=== PATIENT | female | born 1990 | race Caucasian/White ===

== ENCOUNTER → 2021-12-02 13:45 | Outpatient (CLI) | payer BC, SELFPAY ==
--- NOTE | ~2021-12-02 | US_ITS ---
EXAMINATION: US OB /maternal detail DATE: 12/02/2021 14:31 INDICATION: anatomic survey. TECHNIQUE: Real-time ultrasound of the pelvis was performed. COMPARISON: None. FINDINGS: There is a single living fetus in vertex presentation. The placenta is posterior, 9.2 cm from the ce rvix. heart rate is 158 beats per minute (bpm). The amniotic fluid volume is subjectively jg l. There is a 1.8 cm subserosal fibroid. The following biometric data were obtained: Biparietal diameter (BPD): 4.9 cm; head circumference (HC): 18.4 cm; abdominal circumference (AC): 15 .4 cm; femur length (FL): 3.3 cm. These measurements are concordant. Estimated weight is 358 g +/- 54 g, which correlates with the 41st percentile when 04/17/22 is us ed as estimated date of delivery. As single measurements, these parameters are each equal to the following estimated gestational ages w ith ranges of +/- 2 standard deviations: BPD: 21 weeks 0 days (19 weeks 2 days - 22 weeks 5 days). HC: 20 weeks 5 days (19 weeks 2 days - 22 weeks 2 days). AC: 20 weeks 4 days (18 weeks 4 days - 22 weeks 5 days). FL: 20 weeks 2 days (18 weeks 3 days - 22 weeks 1 days). estimated gestational age based solely on measurements from this exam is 20 weeks 5 days +/- 1 weeks 3 days. The cerebral ventricles, cerebellum, cisterna magna, nuchal fold, lip, and visualized portions of the spine are normal. The heart is normal. The diaphragm, stomach, kidneys, and bladder are normal. Ther e are two umbilical arteries to yield a 3-vessel cord. The cord insertion is normal. IMPRESSION: 1. Single living fetus in vertex presentation. 2. Estimated weight is 358 g +/- 54 g, which correlates with the 41st percentile when 04/17/22 i s used as estimated date of delivery. 3. Normal anatomic survey. Reviewed, dictated and finalized at location A. QUALITY TECHNICIAN IMPRESSION: 1. Single living fetus in vertex presentation. 2. Estimated weight is 358 g +/- 54 g, which correlates with the 41st pe rcentile when 04/17/22 is used as estimated date of delivery. 3. Normal anatomic survey.
== END ==
PROVIDERS: Visit Provider Obstetrics & Gynecology Gynecologic Oncology
DX: Z36.9 Encounter for antenatal screening, unspecified (principal); Z3A.20 20 weeks gestation of pregnancy
CPT/HCPCS: 76805

== ENCOUNTER 2024-05-06 13:19 | Outpatient (CLI) | payer OTHER, SELFPAY ==
--- NOTE | ~2024-05-06 | US_ITS ---
EXAMINATION: US OB /maternal detail DATE: 05/06/2024 13:55 INDICATION: Encounter for screening. TECHNIQUE: Real-time ultrasound of the pelvis was performed. COMPARISON: None. FINDINGS: There is a single living fetus in vertex presentation. The placenta is anterior, 1.9 cm from the cer vix. The cervical length is 3.8 cm on transabdominal images, which is normal. heart rate is 138 beats per minute (bpm). The amniotic fluid volume is subjectively normal. The following biometric data were obtained: Biparietal diameter (BPD): 4.6 cm; head circumference (HC): 17.1 cm; abdominal circumference (AC): 14 .7 cm; femur length (FL): 3.2 cm. These measurements are concordant. Estimated weight is 321 g +/- 48 g, which correlates with the 26th percentile when 09/21/24 is u sed as estimated date of delivery. As single measurements, these parameters are each equal to the following estimated gestational ages: BPD: 19 weeks 6 days. HC: 19 weeks 5 days. AC: 20 weeks 0 days. FL: 19 weeks 6 days. estimated gestational age based solely on measurements from this exam is 19 weeks 6 days +/- 1 weeks 3 days. The cerebral ventricles, cerebellum, cisterna magna, nuchal fold, lip, and visualized portions of the spine are normal. The heart is normal. The diaphragm, stomach, kidneys, and bladder are normal. Ther e are two umbilical arteries to yield a 3-vessel cord. The cord insertion is normal. IMPRESSION: 1. Single living fetus in vertex presentation. 2. Estimated weight is 321 g +/- 48 g, which correlates with the 26th percentile when 09/21/24 is used as estimated date of delivery. 3. Low-lying placenta. 4. Normal anatomic survey. Reviewed, dictated and finalized at location E. IMPRESSION: 1. Single living fetus in vertex presentation. 2. Estimated weight is 321 g +/- 48 g, which correlates with the 26th pe rcentile when 09/21/24 is used as estimated date of delivery. 3. Low-lying placenta. 4. Normal anatomic survey.
== END 2024-05-06 13:20 ==
LOC: MICIMG 13:21
PROVIDERS: PCP Obstetrics & Gynecology; Visit Provider Obstetrics & Gynecology
DX: Z36.9 Encounter for antenatal screening, unspecified (principal); Z3A.19 19 weeks gestation of pregnancy
CPT/HCPCS: 76805

== ENCOUNTER 2024-06-03 10:07 | Outpatient (CLI) | payer OTHER, SELFPAY ==
--- NOTE | ~2024-06-03 | US_ITS ---
US OB limited 06/03/2024 10:23 Indication: Low back pain Procedure: High-resolution Limited obstetrical ultrasound Comparison: Her son dated 05/06/2024 Findings: There is a single living intrauterine in vertex presentation. heart rate is 141 BPM. Placenta is anterior measuring 7.5 cm to the cervix. Cervical length is 3.9 cm. Amniotic fl uid is subjectively normal. Impression: 1: Single living intrauterine in vertex presentation. 2: Anterior placenta without previa. Reviewed, dictated and finalized at location B. Impression: 1: Single living intrauterine in vertex presentation. 2: Anterior placenta without previa.
== END 2024-06-03 10:08 ==
LOC: MICIMG 10:08
PROVIDERS: PCP Obstetrics & Gynecology; Visit Provider Obstetrics & Gynecology
DX: O44.42 Low lying placenta NOS or without hemorrhage, second trimester (principal); Z3A.00 Weeks of gestation of pregnancy not specified
CPT/HCPCS: 76815